=== PATIENT | male | born 1980 | race Caucasian/White ===

== ENCOUNTER 2016-10-11 21:38 | Emergency (ER) | payer OTHER ==
[~2016-10-11] VITALS: Ht 172.7 cm; Wt 106.6 kg
[2016-10-11 21:39] VITALS: BP 158/103
[2016-10-11 23:55] LABS: BASOPHILS # (AUTO) 0.1 K/uL (0.00-0.22); BASOPHILS % (AUTO) 1.5 % (0.0-2.0); EOSINOPHILS # (AUTO) 0.3 K/uL (0-0.4); EOSINOPHILS % (AUTO) 3.9 % (0.0-4.0); HEMATOCRIT 42.2 % (36-52); HEMOGLOBIN 14.4 g/dL (12.0-18.0); LYMPHOCYTES # (AUTO) 1.7 K/uL (2.0-11.5); LYMPHOCYTES % (AUTO) 23.8 % (20.5-51.1); MEAN CORPUSCULAR HEMOGLOBIN 32 pg (27-31); MEAN CORPUSCULAR HGB CONC 34 g/dL (33-37); MEAN CORPUSCULAR VOLUME 92 fL (80-94); MONOCYTES # (AUTO) 0.7 K/uL (0.8-1.0); MONOCYTES % (AUTO) 10.5 % (1.7-9.3); NEUTROPHILS # (AUTO) 4.2 K/uL (1.8-7.7); NEUTROPHILS % (AUTO) 60.3 % (42.2-75.2); PLATELET COUNT (AUTO) 165 K/uL (140-450); RED BLOOD CELL COUNT(AUTO) 4.57 MIL/uL (4.20-6.10); RED CELL DISTRIBUTION WIDTH 12.4 % (11.6-13.7)
[2016-10-12] MEDS: NACL 0.9% 1,000 ML IV ONE (00:15)
[2016-10-12] MEDS: KETOROLAC 30 MG/ML VIAL IVP ONE (00:16)
[2016-10-12 00:23] LABS: INR 1.1 (0.8-1.2); PARTIAL THROMBOPLASTIN TIME 28.8 secs (22-35.6); PROTHROMBIN TIME 10.2 secs (10.8-13.4)
[2016-10-12 00:25] LABS: ANION GAP 11.5 (8-16); CALCIUM 8.6 mg/dL (8.5-10.1); CREATININE 1.1 mg/dL (0.6-1.3); POTASSIUM 3.5 mmol/L (3.5-5.1)
[2016-10-12 00:32] LABS: ALBUMIN 3.6 g/dL (3.4-5.0); TOTAL BILIRUBIN 0.3 mg/dL (0.0-1.0)
[2016-10-12] MEDS: MORPHINE SULFATE 2 MG/ML SYR IVP ONE (00:57)
[2016-10-12 01:05] VITALS: BP 142/99
== END 2016-10-12 01:05 | disposition home or self-care (01) ==
LOC: MED 21:38
DX: R07.89 Other chest pain (principal); I10 Essential (primary) hypertension; F17.210 Nicotine dependence, cigarettes, uncomplicated; F12.90 Cannabis use, unspecified, uncomplicated
CPT/HCPCS: 36415; 71010; 80053; 84484; 85025; 85610; 85730; 93005; 96361; 96374; 96375; 99285; J1885; J2270

== ENCOUNTER 2020-09-24 07:57 | Emergency (ER) | payer MEDICAID, OTHER ==
[~2020-09-24] VITALS: Ht 172.7 cm; Wt 95.3 kg
--- NOTE | 2020-09-24 07:58 | NUR ---
Pt ambulated to ER bed 1 with a steady gait.
[2020-09-24 08:08] VITALS: BP 191/160
--- NOTE | 2020-09-24 08:14 | NUR ---
40 Y/O MALE C/O PENILE PAIN DESCRIBES BURNING 9/10 RADIATES TO [facility] X2DAYS. PT STATES HE WAS RECENTLY DX WITH A UTI [id number] AGO AND PRESCRIBED ABX AND TOPICALS BUT HAS WORSENED SINCE. SWELLING NOTED TO GROIN AREA SKIN INTACT. PT DENIES N/V, DENIES FEVER/CHILLS. PMH: HTN NKA
--- NOTE | 2020-09-24 08:19 | NUR ---
Dr. Dickinson at pt bedside for further pt evaluation.
[2020-09-24] MEDS ORDERED: DOXY100T9 PO (09:08)
[2020-09-24] MEDS ORDERED: ACYC400T1 PO (09:08)
[2020-09-24] MEDS ORDERED: LIDOCAINE MPF 1% 5 ML ONE (09:14)
[2020-09-24] MEDS ORDERED: cefTRIAXone 500 MG VIAL ONE (09:14)
[2020-09-24] MEDS: cefTRIAXone 500 MG in LIDOCAINE MPF 1% 1 ML IM ONE (09:35)
[2020-09-24] MEDS: ACYCLOVIR 200 MG CAP PO ONE (09:35)
[2020-09-24 09:36] VITALS: BP 191/160
[2020-09-24] MEDS: DOXYCYCLINE 100 MG CAP PO SCH (09:36)
--- NOTE | 2020-09-24 09:38 | NUR ---
Patient discharged with v/s stable. Written and verbal after care instructions given and explained. Patient alert, oriented and verbalized understanding of instructions. Ambulatory with steady gait. All questions addressed prior to discharge. ID band removed. Patient advised to follow up with PMD. Rx of ACYCLOVIR 400MG PO TID, AND DOXYCYCLINE 100MG PO BID given. Patient educated on indication of medication including possible reaction and side effects. Opportunity to ask questions provided and answered.
== END 2020-09-24 09:38 | disposition home or self-care (01) ==
LOC: MED 07:57
DX: N48.1 Balanitis (principal); I10 Essential (primary) hypertension; Z20.2 Contact with and (suspected) exposure to infections with a predominantly sexual mode of transmission; Z79.899 Other long term (current) drug therapy
CPT/HCPCS: 81002; 96372; 99283; J0696; J2001

== ENCOUNTER 2020-11-13 06:10 | Emergency (ER) | payer MEDICAID, OTHER ==
[~2020-11-13] VITALS: Ht 172.7 cm; Wt 95.3 kg
[~2020-11-13 06:10] MED LIST: ACYC-276 PO; DOXY100T9 PO
[2020-11-13 06:15] VITALS: BP 153/90
[2020-11-13] MEDS ORDERED: KETOROLAC 30 MG/ML VIAL IM ONE (06:40)
[2020-11-13] MEDS ORDERED: NAPR-54 PO (08:01)
[2020-11-13 08:48] VITALS: BP 153/90
== END 2020-11-13 08:49 | disposition home or self-care (01) ==
LOC: MED 06:10
DX: N50.812 Left testicular pain (principal); N50.3 Cyst of epididymis
CPT/HCPCS: 36415; 76870; 81002; 87491; 96372; 99284; J1885

== ENCOUNTER 2020-12-14 09:29 | Emergency (ER) | payer OTHER ==
[~2020-12-14] VITALS: Ht 172.7 cm; Wt 99.8 kg
[~2020-12-14 09:29] MED LIST changes: +NAPR-54 PO
[2020-12-14 09:38] VITALS: BP 140/95
--- NOTE | 2020-12-14 10:17 | NUR ---
Pt ambulated to Chair C with steady gait
--- NOTE | 2020-12-14 10:19 | NUR ---
PT LAC SOAKED IN WARM WATER AND BETADINE ERMD NOTIFIED.
[2020-12-14] MEDS ORDERED: LIDOCAINE MPF 1% 10 MG/ML VIAL INJ ONE (10:30)
[2020-12-14] MEDS ORDERED: NAPR-54 PO (10:54)
[2020-12-14] MEDS ORDERED: CEPH500C16 PO (10:54)
--- NOTE | 2020-12-14 10:56 | NUR ---
PT LAC DRESSED WITH NON-ADHERENT GUAZE PAD AND WRAPPED WITH 2" GUAZE ROLL, [facility] WNL BEFORE AND AFTER
--- NOTE | 2020-12-14 11:05 | NUR ---
Patient discharged with v/s stable. Written and verbal after care instructions given and explained. Pt instucted to follow up for wound check in 2-3 days. Patient alert, oriented and verbalized understanding of instructions. Ambulatory with steady gait. All questions addressed prior to discharge. ID band removed. Patient advised to follow up with PMD. Rx of Keflex and Naproxen was given. Patient educated on indication of medication including possible reaction and side effects. Opportunity to ask questions provided and answered.
[2020-12-14 11:06] VITALS: BP 140/95
== END 2020-12-14 11:05 | disposition home or self-care (01) ==
LOC: MED 09:29
DX: S61.012A Laceration without foreign body of left thumb without damage to nail, initial encounter (principal); I10 Essential (primary) hypertension; Z79.899 Other long term (current) drug therapy; W27.0XXA Contact with workbench tool, initial encounter; Y93.89 Activity, other specified; Y92.89 Other specified places as the place of occurrence of the external cause; Y99.8 Other external cause status
CPT/HCPCS: 12001; 73140; 90471; 90715; 99283; J2001